=== PATIENT | male | born 1970 | race Caucasian/White ===

== ENCOUNTER → 2018-02-20 | Outpatient (CLI) | payer BC, OTHER | LOC: FIMAGING 17:56 | PROVIDERS: ATTEND Internal Medicine Hematology & Oncology | DX: C43.59 Malignant melanoma of other part of trunk (principal); M48.062 Spinal stenosis, lumbar region with neurogenic claudication; M51.86 Other intervertebral disc disorders, lumbar region ==

== ENCOUNTER → 2018-07-05 | Outpatient (CLI) | payer OTHER | LOC: EMCIMAGING 07:53 | PROVIDERS: ATTEND Internal Medicine Hematology & Oncology | DX: C43.59 Malignant melanoma of other part of trunk (principal); C78.00 Secondary malignant neoplasm of unspecified lung; C79.2 Secondary malignant neoplasm of skin | CPT/HCPCS: 70553-PN ==